=== PATIENT | male | born 1990 | race Caucasian/White ===

== ENCOUNTER 2017-10-11 18:58 | Emergency (ER) | payer OTHER ==
[~2017-10-11] VITALS: Ht 170.2 cm; Wt 77.1 kg
--- NOTE | 2017-10-11 18:58 | NUR ---
ROSALIA ADAME TO [facility]ANI[facility] E
[2017-10-11 18:59] VITALS: BP 131/76
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
[2017-10-11 20:22] VITALS: BP 127/82
== END 2017-10-11 20:10 ==
LOC: MED 18:58
DX: S00.81XA Abrasion of other part of head, initial encounter (principal); M79.672 Pain in left foot; Z00.00 Encounter for general adult medical examination without abnormal findings; W19.XXXA Unspecified fall, initial encounter; Y93.89 Activity, other specified; Y92.89 Other specified places as the place of occurrence of the external cause; Y99.8 Other external cause status
CPT/HCPCS: 73630; 99284; Q0092

== ENCOUNTER 2018-07-03 17:25 | Emergency (ER) | payer OTHER ==
[~2018-07-03] VITALS: Ht 167.6 cm; Wt 68.0 kg
[2018-07-03 17:30] VITALS: BP 124/84
--- NOTE | 2018-07-03 17:33 | NUR ---
TO ED 08 WITH STEADY GAIT.
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
--- NOTE | 2018-07-03 18:58 | NUR ---
Patient resting comfortably in bed. Vital Signs within normal limits. Respirations even and unlabored. No new orders at this time.
--- NOTE | 2018-07-03 19:25 | NUR ---
RECEIVED REPORT FROM JANICE MARTINS.
--- NOTE | 2018-07-03 19:31 | NUR ---
Report given to JANICE Khanna. Transfer of care at this time. Pt in stable condition.
--- NOTE | 2018-07-03 19:33 | NUR ---
DR. FRANK BEDSIDE EVALUATING PT
[2018-07-03] MEDS ORDERED: KETOROLAC 60 MG/2 ML VIAL IM ONE (19:40)
--- NOTE | 2018-07-03 20:30 | NUR ---
Patient discharged with v/s stable. Written and verbal after care instructions given and explained. Patient alert, oriented and verbalized understanding of instructions. Ambulatory with steady gait. All questions addressed prior to discharge. ID band removed. Patient advised to follow up with PMD. Rx of NORCO, MOTRIN given. Patient educated on indication of medication including possible reaction and side effects. Opportunity to ask questions provided and answered.
[2018-07-03 20:41] VITALS: BP 113/58
== END 2018-07-03 20:30 | disposition home or self-care (01) ==
LOC: MED 17:25
DX: S13.4XXA Sprain of ligaments of cervical spine, initial encounter (principal); M25.511 Pain in right shoulder; F41.9 Anxiety disorder, unspecified; F17.200 Nicotine dependence, unspecified, uncomplicated; V89.2XXA Person injured in unspecified motor-vehicle accident, traffic, initial encounter; Y93.89 Activity, other specified; Y92.89 Other specified places as the place of occurrence of the external cause; Y99.8 Other external cause status
CPT/HCPCS: 96372; 99283; J1885